=== PATIENT | female | born 1985 | race Caucasian/White ===

== ENCOUNTER 2019-09-07 13:46 | Emergency (ER) | payer MEDICAID, OTHER ==
[~2019-09-07] VITALS: Ht 165.1 cm; Wt 58.1 kg
[2019-09-07 13:46] VITALS: BP_SYST 125
--- NOTE | 2019-09-07 14:25 | NUR ---
Patient to ER bed 4 to gown for evaluation. Side rails up.
[2019-09-07] MEDS ORDERED: NACL 0.9% 1,000 ML IV ONE (14:29)
[2019-09-07] MEDS ORDERED: ONDANSETRON HCL 4 MG/2 ML VIAL IVP ONE (14:30)
--- NOTE | 2019-09-07 14:30 | NUR ---
ER Dr. OLIVIER at bedside examining patient.
--- NOTE | 2019-09-07 14:35 | NUR ---
PATIENT PRESENTED TO ER WITH C/O ABDOMINAL & EPIGASTRIC PAIN, VOMITING BLOOD, +ETOH. PATIENT A&OX4, AFEBRILE, SKIN PINK AND WARM, PAIN 8/10, EMESIS WITH BLOOD, NAUSEA, DENIES DIARRHEA. PATIENT STATES ABDOMINAL & EPIGASTRIC PAIN X3 DAYS, TODAY EMESIS WITH BLOOD, AND PATIENT STATES SHE DRINKS ALCOHOL DAILY.
[2019-09-07 14:55] LABS: BASOPHILS % (AUTO) 0.4 % (0.0-2.0); EOSINOPHILS # (AUTO) 0.1 K/uL (0.0-0.4); EOSINOPHILS % (AUTO) 1.2 % (0.0-4.0); HEMOGLOBIN 12.1 g/dL (12.0-16.0); LYMPHOCYTES # (AUTO) 1.5 K/uL (1.0-5.5); LYMPHOCYTES % (AUTO) 25.9 % (20.5-51.5); MEAN CORPUSCULAR HEMOGLOBIN 33 pg (27-31); MEAN CORPUSCULAR HGB CONC 35 % (32-36); MEAN CORPUSCULAR VOLUME 97 fL (79.0-98.0); MONOCYTES # (AUTO) 0.5 K/uL (0.0-1.0); MONOCYTES % (AUTO) 9.2 % (1.7-9.3); NEUTROPHILS # (AUTO) 3.6 K/uL (1.8-7.7); NEUTROPHILS % (AUTO) 63.3 % (40.0-70.0); PLATELET COUNT (AUTO) 269 K/uL (130-430); RED BLOOD CELL COUNT(AUTO) 3.63 MIL/uL (4.2-6.2); RED CELL DISTRIBUTION WIDTH 13.1 % (9.0-15.0); WHITE BLOOD COUNT (AUTO) 5.7 K/uL (4.8-10.8)
[2019-09-07 15:10] LABS: CALCIUM 9.4 mg/dL (8.4-11.0); CREATININE 0.68 mg/dL (0.55-1.30); POTASSIUM 3.7 mmol/L (3.5-5.1)
--- NOTE | 2019-09-07 15:10 | NUR ---
ER Dr. OLIVIER at bedside examining patient.
[2019-09-07] MEDS ORDERED: PANTOPRAZOLE SODIUM 40 MG/VIAL (PROTONIX) IVP ONE (15:15)
[2019-09-07] MEDS ORDERED: MAG HYDROX/AL HYDROX/SIMETH 30 ML, DICYCLOMINE HCL 20 MG, LIDOCAINE VISCOUS 2% 15ML (PO... PO ONE ×3 (15:15)
[2019-09-07 15:16] LABS: ALBUMIN 3.6 g/dL (3.4-4.8); TOTAL BILIRUBIN 0.3 mg/dL (0.0-1.0)
[2019-09-07 16:15] VITALS: BP_SYST 125
--- NOTE | 2019-09-07 16:15 | NUR ---
Patient given written and verbal discharge instructions and verbalizes understanding. ER MD discussed with patient the results and treatment provided. Patient in stable condition. ID arm band removed. IV catheter removed intact and dressing applied, no active bleeding. Rx of Zofran & Protonix given. Patient educated on pain management and to follow up with PMD. Pain Scale 0/10. Opportunity for questions provided and answered. Medication side effect fact sheet provided.
--- NOTE | 2019-09-07 16:25 | NUR ---
Lesa richter in EDM - 09/07/19 at 1625 by [email or web address] Pt refusing lactic acid draw. Dr. Lou aware.
== END 2019-09-07 16:15 | disposition home or self-care (01) ==
LOC: SED 13:46
DX: K29.20 Alcoholic gastritis without bleeding (principal)
CPT/HCPCS: 36415; 80053; 81002; 81025; 83690; 85025; 96361; 96374; 96375; 99283; C9113; J2001; J2405; J7030